=== PATIENT | male | born 1995 | race Caucasian/White ===

== ENCOUNTER 2018-07-27 13:09 | Emergency (ER) | payer BC ==
[2018-07-27 14:26] LABS: Absolute Lymphocytes (CBC) 2.6 K/uL (0.7-4.9); Absolute Monocytes 0.8 K/uL (0.1-1.3); Absolute Neutrophil 4.7 K/uL (1.8-8.0); Basophils % 0.4 % (0-1.3); Eosinophils % 1.5 % (0-4.4); Hematocrit 46.6 % (39.6-49.0); Lymphocytes % 31.5 % (15.3-44.8); MPV 7.3 fL (7.6-11.3); Monocytes % 9.7 % (3.3-12.3); RBC Red Blood Cell Count 5.25 M/uL (4.33-5.43)
[2018-07-27 14:33] LABS: Urine Blood NEGATIVE (NEG); Urine Glucose NEGATIVE (NEG); Urine Protein 1+ (NEG); Urine Specific Gravity 1.025 (1.005-1.030)
[2018-07-27 14:37] LABS: Protime INR 1.06
[2018-07-27 14:49] LABS: Barbiturates NEGATIVE (NEGATIVE); Benzodiazepines NEGATIVE (NEGATIVE); Cocaine NEGATIVE (NEGATIVE); METHAMPHETAM NEGATIVE (NEGATIVE); Methadone NEGATIVE (NEGATIVE); Opiates NEGATIVE (NEGATIVE); Phencyclidine NEGATIVE (NEGATIVE); THC Cannibis NEGATIVE (NEGATIVE)
[2018-07-27 14:59] LABS: ALT/SGPT 41 U/L (12-78); AST/SGOT 27 U/L (15-37); Albumin 4.3 g/dL (3.4-5.0); Alkaline Phosphatase 74 U/L (45-117); BUN Blood Urea Nitrogen 11 mg/dL (7-18); Bicarbonate 24 mmol/L (21-32); Bilirubin Direct 0.2 mg/dL (0-0.2); Bilirubin Total 0.7 mg/dL (0.2-1.0); Glucose Level 86 mg/dL (74-106); Magnesium 2.1 mg/dL (1.8-2.4); NT PRO-BNP 17 pg/mL (<125); Potassium 3.7 mmol/L (3.5-5.1); Sodium Level 140 mmol/L (136-145); T3 Free 3.43 pg/mL (2.18-3.98); Troponin (Emerg Dept Use Only) < 0.02 ng/mL (0.0-0.045)
--- NOTE | 2018-07-27 15:42 | ER ---
Nurse's Notes [facility] Name: Belle Marcelo Age: 23 yrs Sex: Male : 1995 Arrival Date: 07/27/2018 Time: 13:14 Bed 19 Private MD: None, None Diagnosis: Palpitations Presentation: 07/27 13:17 Presenting complaint: Patient states: For the last couple days my heart has been racing la1 and I have been feeling a little SOB, pt denies pain. Transition of care: patient was not received from another setting of care. Onset of symptoms was July 27, 2018. Risk Assessment: Do you want to hurt yourself or someone else? Patient reports no desire to harm self or others. Initial Sepsis Screen: Does the patient meet any 2 criteria? No. Patient's initial sepsis screen is negative. Does the patient have a suspected source of infection? No. Patient's initial sepsis screen is negative. Care prior to arrival: None. 13:17 Method Of Arrival: Ambulatory la1 13:17 Acuity: RANDY 3 la1 Triage Assessment: 13:55 General: Appears in no apparent distress. uncomfortable, Behavior is calm, cooperative, hj appropriate for age. Pain: Denies pain. Historical: - Allergies: 13:18 No Known Allergies; la1 - Home Meds: 13:18 None [Active]; la1 - PMHx: 13:18 None; la1 - PSHx: 13:18 Hernia repair; la1 - Immunization history:: Adult Immunizations up to date. - Social history:: Smoking status: Patient/guardian denies using tobacco, Patient/guardian denies using. - Ebola Screening: : No symptoms or risks identified at this time. Screenin:55 Abuse screen: Denies threats or abuse. Denies injuries from another. Nutritional hj screening: No deficits noted. Tuberculosis screening: No symptoms or risk factors identified. Fall Risk None identified. Assessment: 13:55 General: Appears in no apparent distress. uncomfortable, Behavior is calm, cooperative, hj appropriate for age. Pain: Denies pain. Neuro: Level of Consciousness is awake, alert, obeys commands, Oriented to person, place, time, situation, Appropriate for age. Cardiovascular: Capillary refill < 3 seconds Patient's skin is warm and dry. Respiratory: Reports shortness of breath. GI: No signs and/or symptoms were reported involving the gastrointestinal system. : No signs and/or symptoms were reported regarding the genitourinary system. EENT: No signs and/or symptoms were reported regarding the EENT system. Derm: No signs and/or symptoms reported regarding the dermatologic system. Musculoskeletal: No signs and/or symptoms reported regarding the musculoskeletal system. 14:11 Reassessment: Patient and/or family updated on plan of care and expected duration. Pain hj level reassessed. Patient is alert, oriented x 3, equal unlabored respirations, skin warm/dry/pink. awaiting results and POC; family in room;. 14:41 Reassessment: Patient and/or family updated on plan of care and expected duration. Pain hj level reassessed. Patient is alert, oriented x 3, equal unlabored respirations, skin warm/dry/pink. urine specimen for UDS sent;. 15:05 Reassessment: Patient and/or family updated on plan of care and expected duration. Pain hj level reassessed. Patient is alert, oriented x 3, equal unlabored respirations, skin warm/dry/pink. labs resulted, awaiting POC:. Vital Signs: 13:18 BP 150 / 100; Pulse 103; Resp 16; Temp 97.5; Pulse Ox 98% ; Weight 136.08 kg; Height 6 la1 ft. 2 in. (187.96 cm); 14:11 BP 139 / 77; Pulse 76; Resp 18; Pulse Ox 98% on R/A; hj 15:05 BP 121 / 64; Pulse 76; Resp 18; Pulse Ox 100% on R/A; hj 13:18 Body Mass Index 38.52 (136.08 kg, 187.96 cm) la1 ED Course: 13:14 Patient arrived in ED. mr 13:15 None, None is Private Physician. mr 13:18 Triage completed. la1 13:18 Arm band placed on left wrist. la1 13:50 Alexi Austin PA is PHCP. cp 13:51 Cal Weaver MD is Attending Physician. cp 13:53 Simba Washington, JUANA is Primary Nurse. hj 13:55 Patient has correct armband on for positive identification. Placed in gown. Bed in low hj position. Call light in reach. Side rails up X 1. Adult w/ patient. 14:01 EKG done, by school bus technician. reviewed by Alexi BOWMAN. at1 14:05 Initial lab(s) drawn, by me, sent to lab. Inserted saline lock: 22 gauge in right hj antecubital area, using aseptic technique. Blood collected. 14:24 Urine collected: clean catch specimen, clear, enrico colored. jb1 15:43 XRAY Chest (1 view) In Process Unspecified. EDMS 15:47 No provider procedures requiring assistance completed. IV discontinued, intact, hj bleeding controlled, No redness/swelling at site. Pressure dressing applied. Administered Medications: No medications were administered Outcome: 15:40 Discharge ordered by MD. cp 15:47 Discharged to home ambulatory, with family. hj 15:47 Condition: stable 15:47 Discharge instructions given to patient, family, Instructed on discharge instructions, follow up and referral plans. Demonstrated understanding of instructions, follow-up care. 15:48 Patient left the ED. Signatures: Dispatcher [employer] EDMS Dm Meza jb1 HaynesNicole mr Arina Poon, cathode ray tube assembler EKG Tat1 Jorden Lund, RN RN la1 Simba Washington, RN RN Alexi Dewey, GRACIE PA cp
--- NOTE | 2018-07-27 15:42 | EDPHYS ---
Physician Documentation [facility] Name: Belle Marcelo Age: 23 yrs Sex: Male : 1995 Arrival Date: 07/27/2018 Time: 13:14 Bed 19 Private MD: None, None ED Physician Cal Weaver HPI: 07/27 13:56 This 23 yrs old Male presents to ER via Ambulatory with complaints of Heart cp Racing. 13:56 The patient presents with a history of heart racing. cp 13:56 Context: The symptoms occur without known cause. Onset: The symptoms/episode cp began/occurred 2 day(s) ago. Duration: The patient or guardian reports multiple episodes, that are intermittent, with no pattern. Modifying factors: The symptoms are aggravated by nothing. The symptoms are alleviated by nothing. Associated signs and symptoms: Pertinent positives: SOB, Pertinent negatives: chest pain, cough, fever, lightheadedness, syncope, vertigo, vomiting. Historical: - Allergies: 13:18 No Known Allergies; la1 - Home Meds: 13:18 None [Active]; la1 - PMHx: 13:18 None; la1 - PSHx: 13:18 Hernia repair; la1 - Immunization history:: Adult Immunizations up to date. - Social history:: Smoking status: Patient/guardian denies using tobacco, Patient/guardian denies using. - Ebola Screening: : No symptoms or risks identified at this time. ROS: 14:00 Constitutional: Negative for body aches, chills, fever, poor PO intake. cp 14:00 Eyes: Negative for injury, pain, redness, and discharge. cp 14:00 ENT: Negative for drainage from ear(s), ear pain, sore throat, difficulty swallowing, difficulty handling secretions. 14:00 Cardiovascular: Positive for palpitations, Negative for chest pain, edema. 14:00 Respiratory: Positive for shortness of breath, Negative for cough, wheezing. 14:00 Abdomen/GI: Negative for abdominal pain, nausea, vomiting, and diarrhea. 14:00 Back: Negative for pain at rest, pain with movement, radiated pain. 14:00 : Negative for urinary symptoms. 14:00 Skin: Negative for cellulitis, rash. 14:00 Neuro: Negative for altered mental status, headache, syncope, weakness. 14:00 All other systems are negative. Exam: 14:05 ECG was reviewed by the Attending Physician. cp 14:08 Constitutional: The patient appears in no acute distress, alert, awake, comfortable, cp non-diaphoretic, non-toxic, well developed, well nourished. 14:08 Head/Face: Normocephalic, atraumatic. cp 14:08 Eyes: Periorbital structures: appear normal, Conjunctiva: normal, no exudate, no injection, Sclera: no appreciated abnormality, Lids and lashes: appear normal, bilaterally. 14:08 ENT: External ear(s): are unremarkable, Ear canal(s): are normal, clear, TM's: are normal, Nose: is normal, Mouth: Lips: moist, Oral mucosa: pink and intact, moist, Posterior pharynx: is normal, airway is patent, no erythema, no exudate. 14:08 Neck: ROM/movement: is normal, is supple, without pain, no range of motions limitations, no nuchal rigidity. 14:08 Chest/axilla: Inspection: normal, Palpation: is normal, no crepitus, no tenderness. 14:08 Cardiovascular: Rate: tachycardic, Rhythm: regular. 14:08 Respiratory: the patient does not display signs of respiratory distress, Respirations: normal, no use of accessory muscles, no retractions, no splinting, no tachypnea, labored breathing, is not present, Breath sounds: are clear throughout, no decreased breath sounds, no stridor, no wheezing. 14:08 Abdomen/GI: Inspection: abdomen appears normal, Palpation: abdomen is soft and non-tender, in all quadrants. 14:08 Back: pain, is absent, ROM is normal. 14:08 Musculoskeletal/extremity: Extremities: all appear grossly normal, with no appreciated pain with palpation. 14:08 Skin: no rash present. 14:08 Neuro: Orientation: to person, place \T\ time. Mentation: is normal, Cerebellar function: is grossly normal, Motor: moves all fours, strength is normal, Sensation: no obvious gross deficits. Vital Signs: 13:18 BP 150 / 100; Pulse 103; Resp 16; Temp 97.5; Pulse Ox 98% ; Weight 136.08 kg; Height 6 la1 ft. 2 in. (187.96 cm); 14:11 BP 139 / 77; Pulse 76; Resp 18; Pulse Ox 98% on R/A; hj 15:05 BP 121 / 64; Pulse 76; Resp 18; Pulse Ox 100% on R/A; hj 13:18 Body Mass Index 38.52 (136.08 kg, 187.96 cm) la1 MDM: 13:51 Patient medically screened. cp 15:40 Data reviewed: vital signs, nurses notes, lab test result(s), EKG, radiologic studies, cp plain films, I have discussed the patient's presentation/case with the attending Emergency Department Physician; and as a result, I will discharge patient. 15:40 Test interpretation: by ED physician or midlevel provider: ECG, plain radiologic cp studies. Counseling: I had a detailed discussion with the patient and/or guardian regarding: the historical points, exam findings, and any diagnostic results supporting the discharge/admit diagnosis, lab results, radiology results, the need for outpatient follow up, a family practitioner. Response to treatment: the patient's symptoms have markedly improved after treatment, and as a result, I will discharge patient. 07/27 13:57 Order name: Basic Metabolic Panel cp 07/27 13:57 Order name: CBC with Diff cp 07/27 13:57 Order name: LFT's cp 07/27 13:57 Order name: Magnesium cp 07/27 13:57 Order name: NT PRO-BNP cp 07/27 13:57 Order name: PT-INR; Complete Time: 14:55 cp 07/27 13:57 Order name: Troponin (emerg Dept Use Only); Complete Time: 15:27 cp 07/27 13:57 Order name: UDS; Complete Time: 14:55 cp 07/27 13:57 Order name: TSH; Complete Time: 15:27 cp 07/27 13:57 Order name: D-Dimer; Complete Time: 14:55 cp 07/27 13:57 Order name: T3 Free; Complete Time: 15:27 cp 07/27 13:59 Order name: Basic Metabolic Panel; Complete Time: 15:27 EDMS 07/27 13:59 Order name: CBC with Automated Diff; Complete Time: 14:55 EDMS 07/27 13:59 Order name: Liver (Hepatic) Function; Complete Time: 15:27 EDMS 07/27 13:57 Order name: EKG; Complete Time: 13:59 07/27 13:57 Order name: Cardiac monitoring; Complete Time: 13:58 07/27 13:57 Order name: EKG - Nurse/Tech; Complete Time: 13:58 07/27 13:57 Order name: IV Saline Lock; Complete Time: 14:26 cp 07/27 13:57 Order name: Labs collected and sent; Complete Time: 14:27 07/27 13:57 Order name: O2 Per Protocol; Complete Time: 13:58 07/27 13:57 Order name: O2 Sat Monitoring; Complete Time: 13:58 cp 07/27 13:57 Order name: Urine Dipstick-Ancillary (obtain specimen); Complete Time: 14:29 07/27 13:59 Order name: Magnesium; Complete Time: 15:27 EDVT 07/27 13:59 Order name: NT PRO-BNP; Complete Time: 15:27 EDVT 07/27 14:25 Order name: Urine Dipstick--Ancillary (enter results) 07/27 14:55 Order name: XRAY Chest (1 view) cp EC:05 Rate is 89 beats/min. Rhythm is regular. [place] interval is normal. QRS interval is normal. cp QT interval is normal. Interpreted by me. Reviewed by me. Administered Medications: No medications were administered Disposition: 16:55 Co-signature as Attending Physician, Cal Weaver MD. rn Disposition: 07/27/18 15:40 Discharged to Home. Impression: Palpitations. - Condition is Stable. - Discharge Instructions: Palpitations. - Medication Reconciliation Form, Thank You Letter, Antibiotic Education, Prescription Opioid Use form. - Follow up: Private Physician; When: 2 - 3 days; Reason: Recheck today's complaints. - Problem is new. - Symptoms have improved. Signatures: Dispatcher [employer] EDVT Cal Weaver MD MD rn Attema, Lee, RN RN Simba Rider RN RN hj Page, Corey, PA PA cp Corrections: (The following items were deleted from the chart) 15:48 15:40 07/27/2018 15:40 Discharged to Home. Impression: Palpitations. Condition is hj Stable. Forms are Medication Reconciliation Form, Thank You Letter, Antibiotic Education, Prescription Opioid Use. Follow up: Private Physician; When: 2 - 3 days; Reason: Recheck today's complaints. Problem is new. Symptoms have improved. cp
--- NOTE | 2018-07-27 15:51 | RAD REPORT ---
EXAM DESCRIPTION: Sameera Single View07/27/2018 3:42 pm CLINICAL HISTORY: Palpitations COMPARISON: 2012 FINDINGS: The lungs appear clear of acute infiltrate. The heart is normal size IMPRESSION: No acute abnormalities displayed
--- NOTE | 2018-07-27 18:24 | EKG ---
Test Date: 2018-07-27 Test Time: 14:01:21 Permaculture Designer: ELIECER MEASUREMENT RESULTS: Intervals: Rate: 89 DE: 134 QRSD: 88 QT: 344 QTc: 418 Bixby: P: 41 DE: 134 QRS: 39 T: 26 INTERPRETIVE STATEMENTS: Normal sinus rhythm with sinus arrhythmia Normal ECG Compared to ECG 06/17/2004 19:12:00 No significant changes Electronically Signed On 07-27-18 18:23:04 CDT by Ryan Adler
== END 2018-07-27 15:48 | disposition home or self-care (01) ==
LOC: ER 13:09
DX: R00.2 Palpitations (principal)
CPT/HCPCS: 36415; 71045; 80048; 80076; 80307; 81003; 83735; 83880; 84443; 84481; 84484; 85025; 85379; 85610; 93005; 99284